=== PATIENT | male | born 1965 | race Caucasian/White ===

== ENCOUNTER → 2017-12-06 | Day surgery (SDC) | payer SELFPAY ==
[~2017-12-06] MED LIST: AMLODIPINE BESY10 MG PO; FENOFIBRATE145 MG PO; FENTANYL CITRATE/PF 100MCG/2 ML INJ ONE; FISH OIL 1,0001 EAC2 PO; FISH OIL 1,2001 EAC1; GLIPIZIDE ER5 MG PO; HYDROCHLOROTHIA25 MG PO; LISINOPRIL-HCT1 EACH; LISINOPRIL10 MG PO; METFORMIN HCL500 M2 PO; MIDAZOLAM HCL 2 MG/2 ML VIAL ONE; OMEPRAZOLE20 MG PEG; SIMVASTATIN40 MG PO; SYMBICORT 16010.2 GM INH
--- OUTSIDE RECORDS SUMMARY | 2017-12-06 10:23 | XMS REPORT ---
Author Organization Unknown Address [address] [place] [address] Phone [phone] Care Team [facility]iders [facility] Social Worker Name Role Phone Martin Blanco Unavailable Unavailable Allergies Code Code System Name Reaction Severity Status Onset NKDA Medications Name Status Start Date Stop Date amlodipine 10 mg tablet TAKE 1 TABLET BY MOUTH EVERY DAY Active Not available Augmentin 875 mg-125 mg tablet Take 1 tablet every 12 hours by oral route as directed for 10 days. Completed 11/21/2017 cyclobenzaprine 10 mg tablet Take 1 tablet twice a day by oral route as needed for 30 days. Active Not available fenofibrate 54 mg tablet Take 1 tablet every day by oral route as directed for 90 days. Active Not available Fish Oil BID Active Not available fluticasone 50 mcg/actuation nasal spray,suspension [place] 1 spray twice a day by intranasal route as directed for 14 days. Completed 11/21/2017 glipizide 5 mg tablet Take 1 tablet twice a day by oral route as directed for 90 days. Active Not available lisinopril 20 mg-hydrochlorothiazide 12.5 mg tablet TAKE 1 TABLET BY MOUTH EVERY DAY Active Not available metformin 500 mg tablet Take 2 tablets twice a day by oral route as directed. Active Not available simvastatin 40 mg tablet TAKE 1 TABLET BY MOUTH EVERY DAY Active Not available Symbicort 160 mcg-4.5 mcg/actuation HFA aerosol inhaler Inhale 1 puff twice a day by inhalation route as directed for 90 days. Active Not available tramadol 50 mg tablet Take 1 tablet 3 times a day by oral route as needed. Completed 11/18/2016 Ventolin HFA 90 mcg/actuation aerosol inhaler Inhale 2 puffs every 4 hours by inhalation route as needed for 30 days. Active Not available Problems Name Status Onset Date Source Type 2 Diabetes Mellitus Active 06/02/2016 Hyperlipidemia Active 06/02/2016 Hypertensive Disorder Active 06/02/2016 Chronic Obstructive Lung Disease Active 06/02/2016 Procedures Date Name Performed by 11/21/[address] [place] [address] (Work [address]) Notes: Patient indicated no previous surgeries on (11/21/2017) Lab Results Date Name Specimen Result Interpretation Description Value Range Status Address 09/14/2017 Lipid Panel, Serum Normal Cholesterol, Total 160 mg/dL <200 mg/dL Final [facility]: [address] Low HDL Cholesterol 29 mg/dL >40 mg/dL Final [facility]: [address] Normal Triglycerides 143 mg/dL <150 mg/dL Final [facility]: [address] High LDL-cholesterol 105 mg/dL (calc) Final [facility]: [address] High Chol/hdlc Ratio 5.5 (calc) <5.0 (calc) Final [facility]: [address] High Non HDL Cholesterol 131 mg/dL (calc) <130 mg/dL (calc) Final [facility]: [address] Pittman [address] 09/14/2017 CMP, Serum or Plasma High Glucose 138 mg/dL 65-99 mg/ dL Final [facility]: [address] Normal Urea Nitrogen (BUN) 19 mg/dL 7-25 mg/dL Final [facility]: [address] Normal Creatinine 1.31 mg/dL 0.70-1.33 mg/dL Final [facility]: [address] Normal eGFR Non-afr. Bahamian 63 mL/min/1.73m2 > or=60 mL/min/ 1.73m2 Final [facility]: [address] Normal eGFR 73 mL/min/1.73m2 > or=60 mL/min/ 1.73m2 Final [facility]: [address] BUN/creatinine Ratio not applicable (calc) 6-22 (calc) Final [facility]: [address] Normal Sodium 140 mmol/L 135-146 mmol/L Final [facility]: [address] Normal Potassium 4.8 mmol/L 3.5-5.3 mmol/L Final [facility]: [address] Normal Chloride 103 mmol/L 98-110 mmol/L Final [facility]: [address] Normal Carbon Dioxide 20 mmol/L 20-31 mmol/L Final [facility]: [address] Normal Calcium 9.4 mg/dL 8.6-10.3 mg/dL Final [facility]: [address] Normal Protein, Total 7.3 g/dL 6.1-8.1 g/dL Final [facility]: [address] Normal Albumin 4.4 g/dL 3.6-5.1 g/dL Final [facility]: [address] Normal Globulin 2.9 g/dL (calc) 1.9-3.7 g/dL (calc) Final [facility]: [address] Normal Albumin/globulin Ratio 1.5 (calc) 1.0-2.5 (calc) Final [facility]: [address] Normal Bilirubin, Total 0.3 mg/dL 0.2-1.2 mg/dL Final [facility]: [address] Normal Alkaline Phosphatase 47 U/L 40-115 U/L Final [facility]: [address] Normal Ast 28 U/L 10-35 U/L Final [facility]: [address] Normal Alt 28 U/L 9-46 U/L Final [facility]: [address] 09/14/2017 HbA1C (Hemoglobin a1C), Blood High Hemoglobin a1C 5.7 % of total HGB <5.7 % of total HGB Final [facility]: [address] EAG (mg/dL) 117 (calc) Final [facility]: [address] EAG (mmol/L) 6.5 (calc) Final [facility]: [address] [place] [address] 06/13/2017 CMP, Serum or Plasma High Glucose 189 mg/dL 65-99 mg/ dL Final [facility]: [address] Normal Urea Nitrogen (BUN) 19 mg/dL 7-25 mg/dL Final [facility]: [address] [place] High Creatinine 1.61 mg/dL 0.70-1.33 mg/dL Final [facility]: [facility] [facility] eGFR Non-afr. [place]ian 49 mL/min/1.73m2 > or=60 mL/min/ 1.73m2 Final [facility]: [address] Low eGFR 57 mL/min/1.73m2 > or=60 mL/min/ 1.73m2 Final [facility]: [address] [facility] Normal BUN/creatinine Ratio 12 (calc) 6-22 (calc) Final [facility]: [address] [facility] Normal Sodium 138 mmol/L 135-146 mmol/L Final [facility]: [address] Pearson [address] [place] [address] Normal Potassium 4.1 mmol/L 3.5-5.3 mmol/L Final [facility]: [address] [facility] Normal Chloride 99 mmol/L 98-110 mmol/L Final [facility]: [address] [facility] Normal Carbon Dioxide 23 mmol/L 20-31 mmol/L Final [facility]: [address] [facility] Normal Calcium 10.0 mg/dL 8.6-10.3 mg/dL Final [facility]: [address] [facility] Normal Protein, Total 7.0 g/dL 6.1-8.1 g/dL Final [facility]: [address] [facility] Normal Albumin 4.2 g/dL 3.6-5.1 g/dL Final [facility]: [address] [facility] Normal Globulin 2.8 g/dL (calc) 1.9-3.7 g/dL (calc) Final [facility]: [address] [facility] Normal Albumin/globulin Ratio 1.5 (calc) 1.0-2.5 (calc) Final [facility]: [address] Pearson [address] [place] [address] Normal Bilirubin, Total 0.5 mg/dL 0.2-1.2 mg/dL Final [facility]: [address] [place], [place] Normal Alkaline Phosphatase 40 U/L 40-115 U/L Final [facility]: [address] [facility] Normal Ast 28 U/L 10-35 U/L Final [facility]: [address] Pearson [address] [place] [address] Normal Alt 32 U/L 9-46 U/L Final [facility]: [address] [facility] 05/19/2017 CMP, Serum or Plasma Alt 28 U/L 0-55 U/L Final [facility]: [address] Ast 25 U/L 5-34 U/L Final [facility]: [address] Pearson [address] [place] [address] High Bun 28.3 mg/dL 8.4-25.7 mg/dL Final [facility]: [address] Alk Phos 80 unit/L 40-150 unit/L Final [facility]: [address] Pearson [address] [place] [address] CRITICAL HIGH Glucose 523 mg/dL 70-99 mg/dL Final [facility]: [address] Albumin 3.5 g/dL 3.5-5.0 g/dL Final [facility]: [address] Pearson [address] [place] [address] High Creatinine 2.13 mg/dL 0.72-1.25 mg/dL Final [facility]: [address] Low eGFR Non- 33 mL/min/1.73m2 >60 mL/min/ 1.73m2 Final [facility]: [address] Total Bilirubin 0.6 mg/dL 0.2-1.2 mg/dL Final [facility]: [address] Low eGFR - 40 mL/min/1.73m2 >60 mL/min/ 1.73m2 Final [facility]: [address] Low Sodium 134 mEq/L 136-145 mEq/L Final [facility]: [address] Potassium 3.6 mEq/L 3.5-5.1 mEq/L Final [facility]: [address] Low Chloride 95 mmol/L 98-107 mmol/L Final [facility]: [address] Total Protein 7.3 g/dL 6.4-8.3 g/dL Final [facility]: [address] Calcium 9.4 mg/dL 8.4-10.2 mg/dL Final [facility]: [address] Co2 23.1 mmol/L 22.0-29.0 mmol/L Final [facility]: [address] Anion Gap 16 calc Final [facility]: [address] 05/19/2017 Lipid Panel, Serum Low Hdl 27 mg/dL 40-60 mg/dL Final [facility]: [address] High Triglyceride 412 mg/dL 0-149 mg/dL Final [facility]: [address] VLDL Calc. 82 mg/dL Final [facility]: [address] cholesterol/HDL Ratio 5.8 mg/dL Final [facility]: [address] non-HDL Cholesterol Calc. 130 mg/dL 0-160 mg/dL Final [facility]: [address] Cholesterol 157 mg/dL 0-199 mg/dL Final [facility]: [address] Low LDL Calc. see comment mg/dL 0-130 mg/dL Final [facility]: [address] 05/19/2017 HbA1C (Hemoglobin a1C), Blood High A1C W/eag 14.3 % 1.0 -5.7 % Final [facility]: [address] Average Blood Glucose 364 mg/dL Final [facility]: [address] 11/18/2016 CMP, Serum or Plasma Alt 48 U/L 0-55 U/L Final [facility]: [address] High Ast 38 U/L 5-34 U/L Final [facility]: [address] [facility] Bun 12 mg/dL 8-26 mg/dL Final [facility]: [address] [place], [place] Alk Phos 77 unit/L 40-150 unit/L Final [facility]: [address] [place], [place] High Glucose 308 mg/dL 70-99 mg/dL Final [facility]: [address] [place], [place] Albumin 3.5 g/dL 3.5-5.0 g/dL Final [facility]: [address] [place] [address], [place] Creatinine 1.10 mg/dL 0.72-1.25 mg/dL Final [facility]: [address] Pearson [address] [place] [address] eGFR Non- >60 mL/min/1.73m2 >60 mL/min/ 1.73m2 Final [facility]: [address] Pearson [address] [place] [address] Total Bilirubin 0.5 mg/dL 0.2-1.2 mg/dL Final [facility]: [address] eGFR - >60 mL/min/1.73m2 >60 mL/min/1.73m2 Final [facility]: [address] [facility] Sodium 135 mEq/L 137-144 mEq/L Final [facility]: [address] Pearson [address] [place] [address] Potassium 4.1 mEq/L 3.5-5.0 mEq/L Final [facility]: [address] Low Chloride 99 mmol/L 101-110 mmol/L Final [facility]: [address] Total Protein 7.0 g/dL 6.4-8.3 g/dL Final [facility]: [address] Calcium 9.8 mg/dL 8.4-10.2 mg/dL Final [facility]: [address] Co2 24.1 mmol/L 21.0-29.0 mmol/L Final [facility]: [address] Anion Gap 12 calc Final [facility]: [address] [facility] 11/18/2016 Lipid Panel, Serum Low Hdl 35 mg/dL 40-60 mg/dL Final [facility]: [address] High Triglyceride 218 mg/dL 0-149 mg/dL Final [facility]: [address] VLDL Calc. 44 mg/dL Final [facility]: [address] cholesterol/HDL Ratio 5 mg/dL Final [facility]: [address] non-HDL Cholesterol Calc. 126 mg/dL 0-160 mg/dL Final [facility]: [address] Cholesterol 161 mg/dL 0-199 mg/dL Final [facility]: [address] LDL Calc. 82 mg/dL 0-130 mg/dL Final [facility]: [address] 11/18/2016 HbA1C (Hemoglobin a1C), Blood High A1C W/eag 10.2 % 1.0 -5.7 % Final [facility]: [address] Average Blood Glucose 246 mg/dL Final [facility]: [address] 06/02/2016 CMP, Serum or Plasma Alt 28.0 U/L 0.0-55.0 U/L Final [facility]: [address] Ast 21.0 U/L 5.0-34.0 U/L Final [facility]: [address] Bun 11.0 mg/dL 8.0-26.0 mg/dL Final [facility]: [address] Alk Phos 67.0 unit/L 40.0-150.0 unit/L Final [facility]: [address] High Glucose 158.0 mg/dL 70.0-99.0 mg/dL Final [facility]: [address] Albumin 3.5 g/dL 3.5-5.0 g/dL Final [facility]: [address] Creatinine 1.1 mg/dL 0.7-1.3 mg/dL Final [facility]: [address] eGFR Non- >60 mL/min/1.73m2 >60.0 mL/min/ 1.73m2 Final [facility]: [facility]055 [facility] Total Bilirubin 0.5 mg/dL 0.2-1.2 mg/dL Final [facility]: [address] eGFR - >60 mL/min/1.73m2 >60.0 mL/min/ 1.73m2 Final [facility]: [address], [place] Sodium 140.0 mEq/L 137.0-144.0 mEq/L Final [facility]: [address] [place] [address], [place] Potassium 4.3 mEq/L 3.5-5.0 mEq/L Final [facility]: [address] Chloride 103.0 mmol/L 101.0-110.0 mmol/L Final [facility]: [address] Total Protein 6.7 g/dL 6.4-8.3 g/dL Final [facility]: [address] Calcium 9.1 mg/dL 8.4-10.2 mg/dL Final [facility]: [address] Pearson [address] [place] [address] Co2 24 mmol/L 21-29 mmol/L Final [facility]: [address] Anion Gap 13.0 calc Final [facility]: [address] 06/02/2016 Lipid Panel, Serum Hdl 44.0 mg/dL 40.0-60.0 mg/dL Final [facility]: [address] High Triglyceride 173.0 mg/dL 0.0-149.0 mg/dL Final [facility]: [address] VLDL Calc. 34.6 mg/dL Final [facility]: [address] cholesterol/HDL Ratio 3.7 mg/dL Final [facility]: [address] non-HDL Cholesterol Calc. 120.0 mg/dL 0.0-160.0 mg/dL Final [facility]: [address] Cholesterol 164.0 mg/dL 0.0-199.0 mg/dL Final [facility]: [address] LDL Calc. 85.4 mg/dL 0.0-130.0 mg/dL Final [facility]: [address] [place] [address], [place] 06/02/2016 HbA1C (Hemoglobin a1C), Blood High A1C W/eag 6.5 % 1.0- 5.7 % Final [facility]: [address] [place] [address], [place] Average Blood Glucose 139.9 mg/dL Final [facility]: [address] [place] [address], [place] 11/07/2015 CMP, Serum or Plasma No observation recorded. [facility]: [address], [place] Glucose, Fingerstick, Blood Blood Glucose: mg/dl [address] [place], [place] [address]ore: [address] [facility] Past Encounters 11/21/2017 Hyperlipidemia; Type 2 Diabetes Mellitus; Benign Essential Hypertension; Chronic Obstructive Lung Disease; Pre-surgery Evaluation; Electrocardiogram Abnormal Be Zapata MD: [address] [place] [phone], Ph. 09/14/2017 Mixed Hyperlipidemia; Type II Diabetes Mellitus Uncontrolled; Low Back Pain; Benign Essential Hypertension; Chronic Obstructive Lung Disease; Upper Respiratory Infection Be Zapata MD: [address] [place] [phone], Ph. 06/13/2017 Type 2 Diabetes Mellitus; Serum Creatinine Raised Be Zapata MD: [address] [place] [phone], Ph. [phone] 05/26/2017 Type II Diabetes Mellitus Uncontrolled; Mixed Hyperlipidemia; Serum Creatinine Raised Be Zapata MD: [address] [place] [phone], Ph. 05/19/2017 Hyperlipidemia; Type II Diabetes Mellitus Uncontrolled; Benign Essential Hypertension; Low Back Pain; Chronic Obstructive Lung Disease; Pneumococcal Vaccination; Vaccination for Diphtheria, Pertussis, and Tetanus; Influenza Vaccination Be Zapata MD: [address] [place] [address], Ph. 11/18/2016 Benign Essential Hypertension; Type II Diabetes Mellitus Uncontrolled; Chronic Obstructive Lung Disease; Hyperlipidemia Be Zapata MD: [address] [place] [address], Ph. 06/02/2016 Type II Diabetes Mellitus Uncontrolled; Benign Essential Hypertension; Mixed Hyperlipidemia; Chronic Obstructive Lung Disease; Low Back Pain; Influenza Vaccination Be Zapata MD: [address] [place] [address], Ph. Social History Smoking Status Former Smoker Notes: quit in February 2016 Vaccine List Vaccine Type Influenza, injectable, MDCK, quadrivalent 05/19/20170.5 mL influenza, seasonal, injectable 06/02/20160.5 mL influenza, unspecified formulation 08/06/2015 Plan of Care Reminders Provider Appointments None recorded. Lab None recorded. Referral None recorded. Procedures None recorded. Surgeries None recorded. Imaging None recorded. Vitals 11/21/2017 01:45PM Work In Same Day Height Weight Blood Pressure 6 ft 4 in 140/70 mm[Hg] 09/14/2017 08:00AM Est Patient Height Weight Blood Pressure 6 ft 4 in 122/78 mm[Hg] 06/13/2017 09:00AM Est Patient Height Weight Blood Pressure 6 ft 4 in 108/70 mm[Hg] 05/26/2017 01:45PM Est Patient Height Weight Blood Pressure 6 ft 4 in 108/70 mm[Hg] 05/19/2017 08:15AM Est Patient Height Weight Blood Pressure 6 ft 4 in 112/70 mm[Hg] 11/18/2016 11:15AM Est Patient Height Weight BMI Blood Pressure 6 ft 4 in 424 lbs 51.6 kg/m2 (1) 160/88 mm[Hg] (2) 132/85 mm[Hg] 06/02/2016 09:15AM Est Patient Height Weight BMI Blood Pressure 6 ft 4 in 375 lbs 45.6 kg/m2 144/88 mm[Hg]
== END | disposition home or self-care (01) ==
LOC: OR 10:21
PROVIDERS: ATTEND Ophthalmology
DX: H25.12 Age-related nuclear cataract, left eye (principal); E11.9 Type 2 diabetes mellitus without complications; Z79.84 Long term (current) use of oral hypoglycemic drugs; I10 Essential (primary) hypertension; E78.5 Hyperlipidemia, unspecified; J44.9 Chronic obstructive pulmonary disease, unspecified; E66.01 Morbid (severe) obesity due to excess calories; K21.9 Gastro-esophageal reflux disease without esophagitis
CPT/HCPCS: 36415; 66984; 82948; J2250

== ENCOUNTER → 2017-12-20 | Day surgery (SDC) | payer SELFPAY ==
[~2017-12-20] MED LIST changes: +OR PHACO EYE KIT ONE; +PREOP PHACO EYE KIT ONE
== END | disposition home or self-care (01) ==
LOC: OR 11:59
PROVIDERS: ATTEND Ophthalmology
DX: H25.11 Age-related nuclear cataract, right eye (principal); E11.9 Type 2 diabetes mellitus without complications; I10 Essential (primary) hypertension; E78.5 Hyperlipidemia, unspecified; I44.0 Atrioventricular block, first degree; J44.9 Chronic obstructive pulmonary disease, unspecified; Z88.5 Allergy status to narcotic agent; Z79.84 Long term (current) use of oral hypoglycemic drugs
CPT/HCPCS: 36415; 66984; 82948; J2250

== ENCOUNTER 2020-03-12 11:52 | Emergency (ER) | payer SELFPAY ==
[~2020-03-12] VITALS: Ht 193 cm; Wt 181.4 kg
[~2020-03-12 11:52] MED LIST changes: -FENTANYL CITRATE/PF 100MCG/2 ML INJ ONE; -MIDAZOLAM HCL 2 MG/2 ML VIAL ONE; -OR PHACO EYE KIT ONE; -PREOP PHACO EYE KIT ONE
[2020-03-12] MEDS ORDERED: METHYLPREDNISOLONE SOD SUCC 125 MG/2ML VIAL IV STA (12:08)
[2020-03-12] MEDS ORDERED: FAMOTIDINE 20 MG/2 ML VIAL IV STA (12:08)
[2020-03-12] MEDS ORDERED: SODIUM CHLORIDE 0.9% 1000ML 1,000 ML IV STA (12:08)
[2020-03-12] MEDS ORDERED: DIPHENHYDRAMINE HCL INJ 50 MG/ML VIAL IV ONE (12:15)
[2020-03-12] MEDS ORDERED: DIPHENHYDRAMINE HCL INJ 50 MG/ML VIAL ONE (12:27)
[2020-03-12] MEDS ORDERED: FAMOTIDINE 20 MG/2 ML VIAL IV ONE (12:27)
--- OUTSIDE RECORDS SUMMARY | 2020-03-12 12:58 | XMS REPORT | Encounter Summary ---
Author Organization Unknown Address [address] [place] [address] Phone [phone] Care Team Providers Care Complaints Coordinator Name Role Phone Be Padilla MD 3 [phone] Artem Cunha MD 111 [phone] Reason for Visit Hyperlipidemia; Hypertensive disorder; L ow back pain; Chronic obstructive lung disease; Type 2 diabetes mellitus; Telemedicine Visit Instructions 1. Chronic obstructive lung disease Symbicort 160 mcg-4.5 mcg/actuation HF A aerosol inhaler Ventolin HFA 90 mcg/actuation aerosol inhaler 2. Low back pain cyclobenzaprine 10 mg tablet 3. Hypertensive disorder amlodipine 10 mg tablet lisinopril 20 mg-hydrochlorothiazide 1 2.5 mg tablet 4. Type 2 diabetes mellitus glipizide 5 mg tablet metformin 500 mg tablet HbA1c (hemoglobin A1c), blood CMP, serum or plasma lipid panel, serum 5. Hyperlipidemia high cholesterol: care instructions fenofibrate 54 mg tablet simvastatin 40 mg tablet Discussion Note await lab-prior > lipids/lft's/< kidney function Plan of Care Patient Instructions continue all meds />exercise Reminders Provider Appointments Return to Office on or around 08/22/2020 Dagoberto Morgan MD Lab HbA1C (Hemoglobin a1C), Blood 02/20/2020 [facility] Laboratory CMP, Serum or Plasma 02/20/2020 [facility] - Laboratory Lipid Panel, Serum 02/20/2020 [facility] Laboratory Referral None recorded. Procedures None recorded. Surgeries None recorded. Imaging None recorded. Medications Name Start Date amlodipine 10 mg tablet TAKE 1 TABLET BY MOUTH ONCE DAILY DIRECTED cyclobenzaprine 10 mg tablet Take 1 tablet twice a day by oral route as needed for 30 days. fenofibrate 54 mg tablet TAKE 1 TABLET BY MOUTH DAILY Fish Oil twice a day- OTC glipizide 5 mg tablet TAKE 1 TABLET BY MOUTH TWICE DAILY lisinopril 20 mg-hydrochlorothiazide 12. 5 mg tablet TAKE 1 TABLET BY MOUTH ONCE DAILY DIRECTED metformin 500 mg tablet TAKE 2 TABLETS BY MOUTH TWICE DAILY simvastatin 40 mg tablet TAKE 1 TABLET BY MOUTH ONCE DAILY DIRECTED Symbicort 160 mcg-4.5 mcg/actuation HFA aerosol inhaler Inhale 1 puff twice a day by inhalation route as directed for 90 days. Ventolin HFA 90 mcg/actuation aerosol in haler Inhale 2 puffs every 4 hours by inhalation route as needed. Medications Administered None recorded. Vitals Height 6 ft 4 in Results Lab Results None recorded. Allergies Code Code System Name Reaction Severity Status Onset NKDA Problems Name Status Onset Date Source Type 2 Diabetes Mellitus Active 06/02/2016 Hyperlipidemia Active 06/02/2016 Hypertensive Disorder Active 06/02/2016 Chronic Obstructive Lung Disease Active 06/02/2016 Low Back Pain Active 08/17/2019 Procedures None recorded. Vaccine List Vaccine Type Influenza, injectable, MDCK, quadrivalen t 05/19/20170.5 mL influenza, injectable, quadrivalent, pre servative free 08/17/20190.5 mL influenza, seasonal, injectable 06/02/20160.5 mL influenza, unspecified formulation 08/06/2015 pneumococcal polysaccharide PPV23 02/07/20190.5 mL Social History Tobacco Smoking Status Former Smoker Past Encounters 02/20/2020 Chronic Obstructive Lung Disease; Low Back Pain; Hypertensive Disorder; Type 2 Diabetes Mellitus; Hyperlipidemia Dagoberto Morgan MD: [id number] [facility], [address], [place] [address], Ph. History of Present Illness Note:I confirm that I received verbal consent from the patient for the virtual visit.
This telemedicine encounter was performed using live {{video and audio*|audio only because either patient did not have technology or unable to connect due to technical problems}}.
<strong>(for audio only)</strong> Total time spent with patient: {{ }} minutes.<div>f/u chronic conditions compliant with meds ,not exercise</div><div>normotensive with self monitoring,fbs 130's< /div> Review of Systems:ROS as noted in the HPI Review of Systems None recorded. Physical Exam Telemedicine/Virtual Visit Reported By: Patient"
--- OUTSIDE RECORDS SUMMARY | 2020-03-12 12:58 | XMS REPORT ---
Author Organization Unknown Address [address] [place] [address] Phone [phone] Care Team Providers Care Theater Projectionist Name Role Phone Be Blanco Unavailable Unavailable Allergies Code Code System Name Reaction Severity Status Onset NKDA Medications Name Status Start Date Stop Date amlodipine 10 mg tablet TAKE 1 TABLET BY MOUTH EVERY DAY Active Not av ailable Augmentin 875 mg-125 mg tablet Take 1 [...] Active Not available fluticasone 50 mcg/actuation nasal spray ,suspension Welch 1 spray twice a day by intranasal route as directed for 14 days. Completed 11/21/2017 glipizide 5 mg tablet Take 1 tablet twice a day by oral route as directed for 90 days. Active Not available lisinopril 20 mg-hydrochlorothiazide 12. 5 mg tablet TAKE 1 TABLET BY MOUTH EVERY DAY Active Not av ailable metformin 500 mg tablet Take 2 tablets twice a day by oral route as directed. Active Not available simvastatin 40 mg tablet TAKE 1 TABLET BY MOUTH EVERY DAY Active Not av ailable Symbicort 160 mcg-4.5 mcg/actuation HFA aerosol inhaler Inhale 1 puff twice a day by inhalation route as directed for 90 days. Active Not available tramadol 50 mg tablet Take 1 tablet 3 times a day by oral route as needed. Completed 11/18/2016 Ventolin HFA 90 mcg/actuation aerosol in haler Inhale 2 puffs every 4 hours by inhalation route as needed for 30 days. Active Not available Problems Name Status Onset Date Source Type 2 Diabetes Mellitus Active 06/02/2016 Hyperlipidemia Active 06/02/2016 Hypertensive Disorder Active 06/02/2016 Chronic Obstructive Lung Disease Active 06/02/2016 Procedures Date Name Performed by 11/21/2017 Electro[facility]ogram [facility] [address] [place] [address] (Work Place) Notes: Patient indicated no previous toni geries on (11/21/2017) Lab Results Date Name Specimen Result Interpretation Description Value Range Status Address 09/14/2017 Lipid Panel, Serum Normal Cholesterol, Tota l 160 mg/dL <200 mg/dL Final [facility]atory: [address] [place] [address], [place] Low HDL Cholesterol 29 mg/dL >40 mg/dL [facility] Laboratory: [address] Normal Triglycerides 143 mg/dL <150 mg/dL [facility] Laboratory: [address] [place] [address], [place] High LDL-cholesterol 105 mg/dL (calc) Final [facility] Laboratory: [address] High Chol/hdlc Ratio 5.5 (calc) <5.0 (katie c) Final [facility] Laboratory: [address] High Non HDL Cholesterol 131 mg/dL (calc) <130 mg/dL (calc) Final [facility] Laboratory: [address] [place] [address], [place] 09/14/2017 CMP, Serum or Plasma High Glucose 138 mg/dL 65-99 mg/dL Final [facility] Laboratory: [address] Normal Urea Nitrogen (BUN) 19 mg/dL 7-25 mg /dL Final [facility] Laboratory: [address] Normal Creatinine 1.31 mg/dL 0.70-1.33 mg/d L Final [facility] Laboratory: [address] Normal eGFR Non-afr. Colombian 63 mL/m in/1.73m2 > or = 60 mL/min/1.73m2 Final [facility] Lab[facility] ratory: [address] Normal eGFR 73 mL/mi n/1.73m2 > or = 60 mL/min/1.73m2 Final [facility] Laboratory: [address] BUN/creatinine Ratio not applicable (calc) 6-22 (calc) Final [facility] Laboratory: [address] Normal Sodium 140 mmol/L 135-146 mmol/L [facility] Laboratory: [address], [place] Normal Potassium 4.8 mmol/L 3.5-5.3 mmol/L Final [facility] Laboratory: [address], [place] Normal Chloride 103 mmol/L 98-110 mmol/L [facility]: [address] [facility] Normal Carbon Dioxide 20 mmol/L 20-31 mmol/ L [facility] Laboratory: [address] [facility] Normal Calcium 9.4 mg/dL 8.6-10.3 mg/dL [facility] Laboratory: [address] [place] Normal Protein, Total 7.3 g/dL 6.1-8.1 g/dL Final [facility] Laboratory: [address] [place] [address] Normal Albumin 4.4 g/dL 3.6-5.1 g/dL Final [facility] Laboratory[facility] [address] [facility] Normal Globulin 2.9 g/dL (calc) 1.9-3.7 g/d L (calc) Final [facility] Laboratory: [address] [place] [address] Normal Albumin/globulin Ratio 1.5 (calc) 1. 0-2.5 (calc) [facility] Laboratory[facility] [address] [facility] Normal Bilirubin, Total 0.3 mg/dL 0.2-1.2 m g/dL Final [facility] Laboratory: [address] [facility] Normal Alkaline Phosphatase 47 U/L 40-115 U /L [facility] Laboratory: [address] Normal Ast 28 U/L 10-35 U/L Final [facility] Laboratory: [address] [place] [address] Normal Alt 28 U/L 9-46 U/L Final [facility] Laboratory[facility] [address] [facility] 09/14/2017 HbA1C (Hemoglobin a1C), Blood High Hemoglobin a1C 5.7 % of total HGB <5.7 % of total HGB [facility] [address] [facility] EAG (mg/dL) 117 (calc) Final [facility] Laboratory: [address] EAG (mmol/L) 6.5 (calc) Final [facility] Laboratory[facility] [address] [facility] 06/13/2017 CMP, Serum or Plasma High Glucose 189 mg/dL 65-99 mg/dL Final [facility] Laboratory: [address] Normal Urea Nitrogen (BUN) 19 mg/dL 7-25 mg /dL Final [facility] Laboratory: [address] High Creatinine 1.61 mg/dL 0.70-1.33 mg/d L Final [facility] Laboratory: [address] Low eGFR Non-afr. Colombian 49 mL/m in/1.73m2 > or = 60 mL/min/1.73m2 Final [facility] Laboratory: [address] Low eGFR 57 mL/mi n/1.73m2 > or = 60 mL/min/1.73m2 [facility] Laboratory: [address] Normal BUN/creatinine Ratio 12 (calc) 6-22 (calc) [facility] Laboratory: [address] Normal Sodium 138 mmol/L 135-146 mmol/L [facility] Laboratory: [address] Normal Potassium 4.1 mmol/L 3.5-5.3 mmol/L [facility] Laboratory: [address] Normal Chloride 99 mmol/L 98-110 mmol/L [facility] Laboratory: [address] Normal Carbon Dioxide 23 mmol/L 20-31 mmol/ L [facility] Laboratory: [address] Normal Calcium 10.0 mg/dL 8.6-10.3 mg/dL [facility] Laboratory: [address] Normal Protein, Total 7.0 g/dL 6.1-8.1 g/dL [facility] Laboratory: [address] Normal Albumin 4.2 g/dL 3.6-5.1 g/dL Final [facility] Laboratory: [address] Normal Globulin 2.8 g/dL (calc) 1.9-3.7 g/d L (calc) Final [facility] Laboratory: [address] [place] Normal Albumin/globulin Ratio 1.5 (calc) 1. 0-2.5 (calc) Final [facility] Laboratory: [address] [place] Normal Bilirubin, Total 0.5 mg/dL 0.2-1.2 m g/dL Final [facility] Laboratory[facility] [address] [facility] Normal Alkaline Phosphatase 40 U/L 40-115 U /L Final [facility] Laboratory: [address] [facility] Normal Ast 28 U/L 10-35 U/L Final [facility] Laboratory: [address] Normal Alt 32 U/L 9-46 U/L Final [facility] Laboratory: [address] [place] 05/19/2017 CMP, Serum or Plasma Alt 28 U/L 0-55 U /L Final [facility] Laboratory: [address] Ast 25 U/L 5-34 U/L Final [facility] Laboratory: [address] [place] [address] High Bun 28.3 mg/dL 8.4-25.7 mg/dL Final [facility] Laboratory: [address] Alk Phos 80 unit/L 40-150 unit/L Fin al [facility] Laboratory: [address] [place] [address] CRITICAL HIGH Glucose 523 mg/dL 70-99 mg/dL Final [facility] Laboratory: [address] Albumin 3.5 g/dL 3.5-5.0 g/dL Final [facility] Laboratory: [address] [place] [address] High Creatinine 2.13 mg/dL 0.72-1.25 mg/d L Final [facility] Laboratory: [address] Low eGFR Non- 33 mL/min/1.73m2 >60 mL/min/1.73m2 Final [facility] Laboratory: [address] Total Bilirubin 0.6 mg/dL 0.2-1.2 mg /dL Final [facility] Laboratory: [address] Low eGFR - 40 mL/min/1. 73m2 >60 mL/min/1.73m2 Final [facility] Laboratory: [address] [place] [address], [place] Low Sodium 134 mEq/L 136-145 mEq/L Final [facility] Laboratory: [address] [place] [address], [place] Potassium 3.6 mEq/L 3.5-5.1 mEq/L [facility] Laboratory: [address] [place] [address], [place] Low Chloride 95 mmol/L 98-107 mmol/L [facility] Laboratory: [address] [place] [address], [place] Total Protein 7.3 g/dL 6.4-8.3 g/dL Final [facility] Laboratory: [address] [place] [address], [place] Calcium 9.4 mg/dL 8.4-10.2 mg/dL [facility] Laboratory: [address] [place] [address], [place] Co2 23.1 mmol/L 22.0-29.0 mmol/L [facility] Laboratory: [address] [place] [address], [place] Anion Gap 16 calc Final [facility] Laboratory: [address] 05/19/2017 Lipid Panel, Serum Low Hdl 27 mg/dL 40-60 mg/dL Final [facility] Laboratory: [address] High Triglyceride 412 mg/dL 0-149 mg/dL [facility] Laboratory: [address] [place] [address], [place] VLDL Calc. 82 mg/dL [facility] Laboratory: [address] cholesterol/HDL Ratio 5.8 mg/dL Final [facility] Laboratory: [address] non-HDL Cholesterol Calc. 130 mg/dL 0-160 mg/dL Final [facility] Laboratory: [address] [place] [address], [place] Cholesterol 157 mg/dL 0-199 mg/dL [facility] Laboratory: [address] Low LDL Calc. see comment mg/dL 0-130 mg /dL Final [facility] Laboratory: [address] [place] [address], [place] 05/19/2017 HbA1C (Hemoglobin a1C), Blood High A1C W/ eag 14.3 % 1.0-5.7 % Final [facility] Laboratory: [address] Average Blood Glucose 364 mg/dL Final [facility] Laboratory: [address] [place] 11/18/2016 CMP, Serum or Plasma Alt 48 U/L 0-55 U /L Final [facility] Laboratory: [address] [place] High Ast 38 U/L 5-34 U/L Final [facility] Laboratory: [address] [place] Bun 12 mg/dL 8-26 mg/dL Final [facility]: [address] [facility] Alk Phos 77 unit/L 40-150 unit/L [facility] Laboratory: [address] [place] High Glucose 308 mg/dL 70-99 mg/dL Final [facility] Laboratory: [address] [facility] [place] Albumin 3.5 g/dL 3.5-5.0 g/dL Final [facility] Laboratory: [address] [place] Creatinine 1.10 mg/dL 0.72-1.25 mg/d L Final [facility] Laboratory: [address] eGFR Non- >60 mL/min/1.73m2 >60 mL/min/1.73m2 Final [facility] Laboratory: [address] [place] [address] [place] Total Bilirubin 0.5 mg/dL 0.2-1.2 mg /dL Final [facility] Laboratory: [address] [facility] [place] eGFR - >60 mL/min/1 .73m2 >60 mL/min/1.73m2 Final [facility] Laboratory: [address] [place] Low Sodium 135 mEq/L 137-144 mEq/L Final [facility] Laboratory: [address] Potassium 4.1 mEq/L 3.5-5.0 mEq/L [facility] Laboratory: [address] [place] Low Chloride 99 mmol/L 101-110 mmol/L [facility] Laboratory: [address] [facility] Total Protein 7.0 g/dL 6.4-8.3 g/dL Final [facility] Laboratory: [address] [facility] Calcium 9.8 mg/dL 8.4-10.2 mg/dL [facility] Laboratory: [address] Co2 24.1 mmol/L 21.0-29.0 mmol/L [facility] Laboratory: [address] Anion Gap 12 calc Final [facility] Laboratory: [address] 11/18/2016 Lipid Panel, Serum Low Hdl 35 mg/dL 40-60 mg/dL Final [facility] Laboratory: [address] High Triglyceride 218 mg/dL 0-149 mg/dL F badgerl [facility] Laboratory: [address] VLDL Calc. 44 mg/dL Final [facility] Laboratory: [address] cholesterol/HDL Ratio 5 mg/dL Final [facility] Laboratory: [address] non-HDL Cholesterol Calc. 126 mg/dL 0-160 mg/dL Final [facility] Laboratory: [address] Cholesterol 161 mg/dL 0-199 mg/dL [facility] Laboratory: [address] LDL Calc. 82 mg/dL 0-130 mg/dL Final [facility] Laboratory: [address] 11/18/2016 HbA1C (Hemoglobin a1C), Blood High A1C W/ eag 10.2 % 1.0-5.7 % Final [facility] Laboratory: [address] Average Blood Glucose 246 mg/dL Final [facility] Laboratory: [address] [place] [address], [place] 06/02/2016 CMP, Serum or Plasma Alt 28.0 U/L 0.0- 55.0 U/L Final [facility] Laboratory: [address] Ast 21.0 U/L 5.0-34.0 U/L Final [facility] Laboratory: [address] Bun 11.0 mg/dL 8.0-26.0 mg/dL Final [facility] Laboratory: [address] Alk Phos 67.0 unit/L 40.0-150.0 unit /L Final [facility] Laboratory: [address] High Glucose 158.0 mg/dL 70.0-99.0 mg/dL Final [facility] Laboratory: [address], [place] Albumin 3.5 g/dL 3.5-5.0 g/dL Final [facility] Laboratory: [address], [place] Creatinine 1.1 mg/dL 0.7-1.3 mg/dL F inal [facility] Laboratory: [address], [place] eGFR Non- >60 mL/min/1.73m2 >60.0 mL/min/1.73m2 Final [facility] Laboratory: [address], [place] Total Bilirubin 0.5 mg/dL 0.2-1.2 mg /dL Final [facility] Laboratory: [address], [place] eGFR - >60 mL/min/1 .73m2 >60.0 mL/min/1.73m2 Final [facility] Laboratory: [address], [place] Sodium 140.0 mEq/L 137.0-144.0 mEq/L Final [facility] Laboratory: [address] [place] [address] Potassium 4.3 mEq/L 3.5-5.0 mEq/L Fi [facility] Laboratory: [address] [facility] Chloride 103.0 mmol/L 101.0-110.0 mm ol/L Final [facility] Laboratory: [address] [place] Total Protein 6.7 g/dL 6.4-8.3 g/dL Final [facility] Laboratory: [address], [place] Calcium 9.1 mg/dL 8.4-10.2 mg/dL Fin [facility] Laboratory: [address], [place] Co2 24 mmol/L 21-29 mmol/L [facility]: [address] [facility] Anion Gap 13.0 calc Final [facility] Laboratory: [address] [place] 06/02/2016 Lipid Panel, Serum Hdl 44.0 mg/dL 40.0 -60.0 mg/dL Final [facility] Laboratory: [address] [place] High Triglyceride 173.0 mg/dL 0.0-149.0 m g/dL Final [facility] Laboratory: [address] [place] [address], [place] VLDL Calc. 34.6 mg/dL Final [facility] Laboratory: [address] [place] [address], [place] cholesterol/HDL Ratio 3.7 mg/dL Final [facility] Laboratory: [address] [place] [address], [place] non-HDL Cholesterol Calc. 120.0 mg/d L 0.0-160.0 mg/dL Final [facility] Laboratory: [address] [place] [address], [place] Cholesterol 164.0 mg/dL 0.0-199.0 mg /dL Final [facility] Laboratory: [address] [place] [address], [place] LDL Calc. 85.4 mg/dL 0.0-130.0 mg/dL Final [facility] Laboratory: [address] [place] [address], [place] 06/02/2016 HbA1C (Hemoglobin a1C), Blood High A1C W/ eag 6.5 % 1.0-5.7 % Final [facility] Laboratory: [address] [place] [address], [place] Average Blood Glucose 139.9 mg/dL Final [facility] Laboratory: [address] [place] [address], [place] 11/07/2015 CMP, Serum or Plasma No observation recor ded. [facility]: [id number], [place] Glucose, Fingerstick, Blood Blood Glucose: m g/dl 152 [facility] [address] [place] [address] Past Encounters 11/21/2017 Hyperlipidemia; Type 2 Diabetes Mellitus; Benign Essential Hypertension; Chronic Obstructive Lung Disease; Pre-surgery Evaluation; Electrocardiogram Abnormal Be Zapata MD: [address] [place] [phone], Ph. 09/14/2017 Mixed Hyperlipidemia; Type II Diabetes Mellitus Uncontrolled; Low Back Pain; Benign Essential Hypertension; Chronic Obstructive Lung Disease; Upper Respiratory Infection Be Zapata MD: [address] [place] [phone], Ph. 06/13/2017 Type 2 Diabetes Mellitus; Serum Creatinine Raised Be Zapata MD: [address] [place] [phone], Ph. 05/26/2017 Type II Diabetes Mellitus Uncontrolled; Mixed Hyperlipidemia; Serum Creatinine Raised Be Zapata MD: [address] [place] [phone], Ph. 05/19/2017 Hyperlipidemia; Type II Diabetes Mellitus Uncontrolled; Benign Essential Hypertension; Low Back Pain; Chronic Obstructive Lung Disease; Pneumococcal Vaccination; Vaccination for Diphtheria, Pertussis, and Tetanus; Influenza Vaccination Be Zapata MD: [address] [place] [phone], Ph. 11/18/2016 Benign Essential Hypertension; Type II Diabetes Mellitus Uncontrolled; Chronic Obstructive Lung Disease; Hyperlipidemia Be Zapata MD: [address] [place] [phone], Ph. 06/02/2016 Type II Diabetes Mellitus Uncontrolled; Benign Essential Hypertension; Mixed Hyperlipidemia; Chronic Obstructive Lung Disease; Low Back Pain; Influenza Vaccination Be Zapata MD: [address] [place] [phone], Ph. Social History Smoking Status Former Smoker Notes: quit in February 2016 Vaccine List Vaccine Type Influenza, injectable, MDCK, quadrivalen t 05/19/20170.5 mL influenza, seasonal, injectable 06/02/20160.5 mL [...] in 424 lbs 51.6 kg/m2 (1) 160/88 mm[H g] (2) 132/85 mm[Hg] 06/02/2016 09:15AM Est Patient Height Weight BMI Blood Pressure 6 ft 4 in 375 lbs 45.6 kg/m2 144/88 mm[Hg]
--- OUTSIDE RECORDS SUMMARY | 2020-03-12 12:58 | XMS REPORT | Encounter Summary ---
Author Organization Unknown Address [address] [place] [address] Phone [phone] Care Team Providers Care Lease Operator Name Role Phone Be Padilla MD 3 [phone] Artem Cunha MD 111 [phone] Reason for Visit lab only visit Instructions 1. Type 2 diabetes mellitus Discussion Note: None recorded. Patient educational handouts: No information available. Plan of Care Reminders Provider Appointments Return to Office on or around 08/22/2020 Dagoberto Moragn MD Lab None recorded. Referral None recorded. Procedures [...] needed. Medications Administered None recorded. Vitals Height Weight BMI 6 ft 4 in 379 lbs 46.1 kg/m2 Results Lab Results None recorded. Allergies Code [...] Tobacco Smoking Status Former Smoker Past Encounters 03/06/2020 Type 2 Diabetes Mellitus Dagoberto Morgan MD: [id number], [facility] [address], [place] [address], Ph. 02/20/2020 Chronic Obstructive Lung Disease; Low Back Pain; Hypertensive Disorder; Type 2 Diabetes Mellitus; Hyperlipidemia Dagoberto Morgan MD: [id number], [address], [place] [address], Ph. History of Present Illness None recorded. Review of Systems None recorded. Physical Exam None recorded.
--- OUTSIDE RECORDS SUMMARY | 2020-03-12 12:58 | XMS REPORT | Encounter Summary ---
Author Organization Unknown Address [address] [place] [address] Phone [phone] Care Team Providers Care Resident Engineer Name Role Phone Be Padilla MD 3 [phone] Artem Cunha MD 111 [phone] Reason for Visit Hyperlipidemia; Hypertensive disorder; T ype 2 diabetes mellitus Instructions 1. Type 2 diabetes mellitus glipizide 5 mg tablet metformin 500 mg tablet HbA1c (hemoglobin A1c), blood 2. Hyperlipidemia high cholesterol: care instructions fenofibrate 54 mg tablet simvastatin 40 mg tablet lipid panel, serum 3. Hypertensive disorder amlodipine 10 mg tablet lisinopril 20 mg-hydrochlorothiazide 1 2.5 mg tablet CMP, serum or plasma CBC w/ auto diff 4. Body mass index 40+ - severely obese body mass index: care instructions learning about healthy weight 5. Morbid obesity starting a weight loss plan: care inst ructions start aerobic exercise body mass index: care instructions dash diet: care instructions 6. Low back pain cyclobenzaprine 10 mg tablet 7. Screening for malignant neoplasm of c olon fecal occult blood, stool 8. Immunization Pneumovax 23 25 mcg/0.5 mL injection s yringe 9. Screening for malignant neoplasm of p rostate PSA, serum or plasma Discussion Note: None recorded. Plan of Care Reminders Provider Appointments Return to Office on or around 08/12/2019 Be Zapata MD Lab Fecal Occult Blood, Stool 02/07/2019 [facility] CMP, Serum or Plasma 02/07/2019 [place] [facility] CBC W/ Auto Diff 02/07/2019 [facility] Lipid Panel, Serum 02/07/2019 [facility] HbA1C (Hemoglobin a1C), Blood 02/07/2019 [facility] PSA, Serum or Plasma 02/07/2019 [place] [facility] Referral None recorded. Procedures None recorded. Surgeries None recorded. Imaging None recorded. Medications Name Start Date amlodipine 10 mg tablet TAKE 1 TABLET BY MOUTH ONCE DAILY DIRECTED cyclobenzaprine 10 mg tablet Take 1 tablet twice a day by oral route as needed for 30 days. fenofibrate 54 mg tablet TAKE 1 TABLET BY MOUTH DAILY Fish Oil BID - OTC glipizide 5 mg tablet TAKE 1 [...] inhalation route as needed for 30 days. Medications Administered None recorded. Vitals Height Weight BMI Blood Pressure 6 ft 4 in 387.6 lbs 47.2 kg/m2 132/80 mm[Hg] Lab Results None recorded. Allergies Code Code System Name Reaction Severity Status Onset NKDA Problems Name Status Onset Date Source Type 2 Diabetes Mellitus Active 06/02/2016 Hyperlipidemia Active 06/02/2016 Hypertensive Disorder Active 06/02/2016 Chronic Obstructive Lung Disease Active 06/02/2016 Procedures None recorded. Vaccine List Vaccine Type Influenza, injectable, MDCK, quadrivalen t 05/19/20170.5 mL influenza, seasonal, injectable 06/02/20160.5 mL influenza, unspecified formulation 08/06/2015 pneumococcal polysaccharide PPV23 02/07/20190.5 mL Social History Smoking Status Former Smoker Past Encounters 02/07/2019 Type 2 Diabetes Mellitus; Hyperlipidemia; Hypertensive Disorder; Body Mass Index 40+ - Severely Obese; Morbid Obesity; Low Back Pain; Screening for Malignant Neoplasm of Colon; Immunization; Screening for Malignant Neoplasm of Prostate Be Zapata MD: [id number] [place] [address], Ph. History of Present Illness Note:F/u on chronic conditions. Needs refills. Compliant with meds. Non compliant with diet or exercise. Glucose readings at home 120s-130s. BPs at home 120s/80s. No side effects with meds. No new concerns. Review of Systems Comprehensive General Adult ROS Reported By: Patient Constitutional: Constitutional: no fever Eyes: Eyes: no vision change Cardiovascular: Cardiovascular: no chest donavon n, no palpitations, no lightheadedness Respiratory: Respiratory: no cough, no wh eezing, no shortness of breath Gastrointestinal: Gastrointestinal: no abdomin al pain, no nausea, no vomiting, no constipation, no diarrhea Musculoskeletal: Musculoskeletal: no muscle a ches, no swelling in the extremities Neurologic: Neurologic: no loss of consc iousness, no headaches Psychiatric: Psych: no depression, no alc ohol abuse, no anxiety, no suicidal thoughts Endocrine: Endocrine: no fatigue Physical Exam General Adult Exam (male) Reported By: Patient Constitutional: General Appearance: healthy- appearing, morbidly obese. Level of Distress: NAD. Ambulation: ambulating normally Psychiatric: Insight: good judgement. Men steve Status: active and alert, normal mood, normal affect. Orientation: to time, to place, to person. Memory: recent memory normal, remote memory normal Head: Head: normocephalic, atrauma tic Eyes: Lids and Conjunctivae: non-i njected, no discharge. EOM: EOMI ENMT: Ears: TMs clear. Nose: no si nus tenderness. Lips, Teeth, and Gums: no mouth or lip ulcers. Oropharynx: moist mucous membranes Neck: Neck: supple, trachea midlin e. Thyroid: no enlargement, non-tender Lungs: Auscultation: breath sounds normal Cardiovascular: Heart Auscultation: RRR, nor mal S1, normal S2, no murmurs. Neck vessels: no carotid bruits. Pulses including femoral / pedal: normal throughout Abdomen: Inspection and Palpation: so ft, non-distended, no tenderness, no guarding Musculoskeletal:: Motor Strength and Tone: nor mal, normal tone. Joints, Bones, and Muscles: normal movement of all extremities, no tenderness. Extremities: no edema Neurologic: Gait and Station: normal gai t. Cranial Nerves: grossly intact. Coordination and Cerebellum: no tremor Skin: Inspection and palpation: no rash, no lesions Back: Thoracolumbar Appearance: ; non tender with palpation
--- OUTSIDE RECORDS SUMMARY | 2020-03-12 12:58 | XMS REPORT | Continuity of Care Document ---
Author Author [facility] t Organization [facility] Address [address] [place] [address] Phone Unavailable Care Team Providers Care Child Care Lead Teacher Name Role Phone Unavailable Unavailable Problems Condition Name Condition Details Condition Category Status Onset Date Resolution Date Last Treatment Date Treating Clinician Comments Source Low back pain Low Back Pain Problem Active 2019-08-17 00:00:00 [facility] Type 2 diabetes mellitus Type 2 Diabetes Mellitus Problem Acti ve 2016-06-02 00:00:00 [facility] Hyperlipidemia Hyperlipidemia Problem Active 2016-06-02 00:00:00 [facility] Hypertensive disorder Hypertensive Disorder Problem Active 201 01-15-26 00:00:00 [facility] Lucas akins Chronic obstructive lung disease Chronic Obstructive Lung Diseas e Problem Active 2016-06-02 00:00:00 [facility] Allergies, Adverse Reactions, Alerts This patient has no known allergies or adverse reactions. Social History Smoking Status Start Date Stop Date Source Former Smoker Moshe akins Medications Ordered Medication Name Filled Medication Name Start Date Stop Da te Current Medication? Ordering Clinician Indication Dosage Frequency Signature (SIG) Comments Components Source amlodipine 10 mg tablet TAKE 1 TABLET BY MOUTH ONCE DA NAEL DIRECTED amlodipine 10 mg tablet TAKE 1 TABLET BY MOUTH ONCE DAILY DIRECTED No amlodipine 10 mg tablet TAKE 1 TABLET BY MOUTH ONCE DAILY DIRECTED [facility] cyclobenzaprine 10 mg tablet Take 1 tabl et twice a day by oral route as needed for 30 days. cyclobenzaprine 10 mg tablet Take 1 tabl et twice a day by oral route as needed for 30 days. No 1 BID cyclobenzaprine 10 mg tablet Take 1 tablet twice a day by oral route as needed for 30 days. [facility] fenofibrate 54 mg tablet TAKE 1 TABLET BY MOUTH DAILY fenofibrate 54 mg tablet TAKE 1 TABLET BY MOUTH DAILY No fenofibrate 54 mg tablet TAKE 1 TABLET BY MOUTH DAILY [facility] Fish Oil twice a day- OTC Fish Oil twice a day- OTC No Fish Oil twice a day- OTC [facility] mg tablet TAKE 1 TABLET BY MOUTH TWICE ENRRIQUE LY glipizide 5 mg tablet TAKE 1 TABLET BY MOUTH TWICE DAILY No glipizide 5 mg tablet TAKE 1 TABLET BY MOUTH TWICE DAILY [facility] lisinopril 20 mg-hydrochlorothiazide 12. 5 mg tablet TAKE 1 TABLET BY MOUTH ONCE DAILY DIRECTED lisinopril 20 mg-hydrochlorothiazide 12. 5 mg tablet TAKE 1 TABLET BY MOUTH ONCE DAILY DIRECTED No lisinopril 20 mg- hydrochlorothiazide 12.5 mg tablet TAKE 1 TABLET BY MOUTH ONCE DAILY DIRECTED [facility] metformin 500 mg tablet TAKE 2 TABLETS BY MOUTH TWICE DAILY metformin 500 mg tablet TAKE 2 TABLETS BY MOUTH TWICE DAILY No metformin 500 mg tablet TAKE 2 TABLETS BY MOUTH TWICE DAILY [facility] simvastatin 40 mg tablet TAKE 1 TABLET BY MOUTH ONCE D AILY DIRECTED simvastatin 40 mg tablet TAKE 1 TABLET BY MOUTH ONCE DAILY DIRECTED No simvastatin 40 mg tablet TAKE 1 TABLET BY MOUTH ONCE DAILY DIRECTED [facility] Symbicort 160 mcg-4.5 mcg/actuation HFA aerosol inhaler Inhale 1 puff twice a day by inhalation route as directed for 90 days. Symbicort 160 mcg-4.5 mcg/actuation HFA aerosol inhaler Inhale 1 puff twice a day by inhalation route as directed for 90 days. No 1puff(s) BID Symbicort 160 mcg-4.5 mcg/actuation HFA aerosol inhaler Inhale 1 puff twice a day by inhalation route as directed for 90 days. [facility] Ventolin HFA 90 mcg/actuation aerosol in haler Inhale 2 puffs every 4 hours by inhalation route as needed. Ventolin HFA 90 mcg/actuation aerosol in haler Inhale 2 puffs every 4 hours by inhalation route as needed. No 2puff(s) Q4H Ventolin HFA 90 mcg/actuation aerosol inhaler Inhale 2 puffs every 4 hours by inhalation route as needed. [facility] Practice Immunizations Ordered Immunization Name Filled Immunization Name Date Status Comments Source influenza, injectable, quadrivalent, preservative free influenza, injectable, quadrivalent, preservative free 2019-08-17 15:37:[address] [facility] pneumococcal polysaccharide PPV23 pneumococcal polysaccharid e PPV23 2019-02-07 11:05:00 [facility]pleted [facility] Influenza, injectable, MDCK, quadrivalent Influenza, i njectable, MDCK, quadrivalent 2017-05-19 09:23:12 Completed [facility] influenza, seasonal, injectable influenza, seasonal, injecta ble 2016-06-02 17:00:00 Completed [facility] ice influenza, unspecified formulation influenza, unspecified fo rmulation 2015-08-06 00:00:[address] [facility] ice Vital Signs Vital Name Observation Time Observation Value Comments Source Height 2020-03-06 00:00:00 76 [in_i] [facility] BMI (Body Mass Index) 2020-03-06 00:00:00 46.1 kg/m2 [facility] Body Weight 2020-03-06 00:00:00 379 [lb_av] [facility] Height 2020-02-20 00:00:00 76 [in_i] [facility] BP Diastolic 2019-08-17 00:00:00 84 mm[Hg] [facility] Height 2019-08-17 00:00:00 76 [in_i] [facility] BMI (Body Mass Index) 2019-08-17 00:00:00 46.1 kg/m2 [facility] BP Systolic 2019-08-17 00:00:00 150 mm[Hg] [facility] Body Weight 2019-08-17 00:00:00 379 [lb_av] [facility] BP Diastolic 2019-02-07 00:00:00 80 mm[Hg] [facility] Height 2019-02-07 00:00:00 76 [in_i] [facility] BMI (Body Mass Index) 2019-02-07 00:00:00 47.2 kg/m2 [facility] BP Systolic 2019-02-07 00:00:00 132 mm[Hg] [facility] Body Weight 2019-02-07 00:00:00 387.6 [lb_av] [facility] BP Diastolic 2017-11-21 00:00:00 70 mm[Hg] [facility] Height 2017-11-21 00:00:00 76 [in_i] [facility] BP Systolic 2017-11-21 00:00:00 140 mm[Hg] [facility] BP Diastolic 2017-09-14 00:00:00 78 mm[Hg] [facility] Height 2017-09-14 00:00:00 76 [in_i] [facility] BP Systolic 2017-09-14 00:00:00 122 mm[Hg] [facility] BP Diastolic 2017-06-13 00:00:00 70 mm[Hg] [facility] Height 2017-06-13 00:00:00 76 [in_i] [facility] BP Systolic 2017-06-13 00:00:00 108 mm[Hg] [facility] BP Diastolic 2017-05-26 00:00:00 70 mm[Hg] [facility] Height 2017-05-26 00:00:00 76 [in_i] [facility] BP Systolic 2017-05-26 00:00:00 108 mm[Hg] [facility] BP Diastolic 2017-05-19 00:00:00 70 mm[Hg] [facility] Height 2017-05-19 00:00:00 76 [in_i] [facility] BP Systolic 2017-05-19 00:00:00 112 mm[Hg] [facility] BP Diastolic 2016-11-18 00:00:00 88 mm[Hg] [facility] Height 2016-11-18 00:00:00 76 [in_i] [facility] BMI (Body Mass Index) 2016-11-18 00:00:00 51.6 kg/m2 [facility] BP Systolic 2016-11-18 00:00:00 160 mm[Hg] [facility] Body Weight 2016-11-18 00:00:00 424 [lb_av] [facility] BP Diastolic 2016-06-02 00:00:00 88 mm[Hg] [facility] Height 2016-06-02 00:00:00 76 [in_i] [facility] BMI (Body Mass Index) 2016-06-02 00:00:00 45.6 kg/m2 [facility] BP Systolic 2016-06-02 00:00:00 144 mm[Hg] [facility] Body Weight 2016-06-02 00:00:00 375 [lb_av] [facility] Procedures Procedure Date / Time Performed Performing Clinician Sourc e electrocardiogram 2017-11-21 00:00:00 [facility] Carmen cantu [facility] Plan of Care Planned Activity Planned Date Details Comments Source Future Appointment 2020-08-22 00:00:00 Dagoberto Morgan, [address]; [address], [place] [address] [facility] Prac rafael Encounters Start Date/Time End Date/Time Encounter Type Admission Type [facility] Care Department Encounter ID Source 2020-03-06 00:00:00 2020-03-06 00:00:00 Dagoberto Morgan MD: [address], [address], [place] [address], Ph. [facility] (WAG) [id number] [facility] 2020-02-20 00:00:00 2020-02-20 00:00:00 Dagoberto Morgan MD: [address], [address], [place] [address], Ph. [facility] (WAG) [id number] [facility] 2019-08-17 00:00:00 2019-08-17 00:00:00 Dagoberto Morgan MD: [address] [place] [address], Ph. [facility] [id number] [facility] 2019-02-07 00:00:00 2019-02-07 00:00:00 Be garduno MD: [place] [address], Ph. [facility] [id number] [facility] 2017-11-21 00:00:00 2017-11-21 00:00:00 Be garduno MD: [address] [place] [address], Ph. [facility] [id number] [facility] 2017-09-14 00:00:00 2017-09-14 00:00:00 Be garduno MD: [place] [address], Ph. [facility] [id number] [facility] 2017-06-13 00:00:00 2017-06-13 00:00:00 Be garduno MD: [address] [place] [address], Ph. [facility] [id number] [facility] 2017-05-26 00:00:00 2017-05-26 00:00:00 Be garduno MD: [address] [place] [address], Ph. [facility] [id number] [facility] 2017-05-19 00:00:00 2017-05-19 00:00:00 Be garduno MD: [address] [place] [address], Ph. [facility] [id number] [facility] 2016-11-18 00:00:00 2016-11-18 00:00:00 Be garduno MD: [address] [place] [address], Ph. [facility] [id number] [facility] 2016-06-02 00:00:00 2016-06-02 00:00:00 Be garduno MD: [address] [place] [address], Ph. [facility] [id number] [facility] Results Test Description Test Time Test Comments Results Result Comments Source Lipid 1996 panel - Serum or Plasma 2017-09-15 11:29:00 Test Item cholesterol, total (test code = cholesterol, total) 160 mg/dL <2 00 HDL cholesterol (test code = HDL cholesterol) 29 mg/dL >40 L triglycerides (test code = triglycerides) 143 mg/dL <150 LDL-cholesterol (test code = LDL-cholesterol) 105 mg/dL (calc) H chol/HDLC ratio (test code = chol/HDLC ratio) 5.5 (calc) <5.0 H non HDL cholesterol (test code = non HDL cholesterol) 131 mg/dL (ca lc) <130 H [facility] - Serum or Plasma 2017-09-15 11:29:00* Test Item Value Reference Range Interpretation Comments glucose (test code = glucose) 138 mg/dL 65-99 H urea nitrogen (BUN) (test code = urea nitrogen (BUN)) 19 mg/dL 7-25 creatinine (test code = creatinine) 1.31 mg/dL 0.70-1.33 eGFR non-afr. costa rican (test code = eGFR non-afr. costa rican) 63 mL/min/1.73m2 > or = 60 eGFR (test code = eGFR ) 73 mL/min/1.73m2 > or = 60 BUN/creatinine ratio (test code = BUN/creatinine ratio) not applica ble 6-22 sodium (test code = sodium) 140 mmol/L 135-146 potassium (test code = potassium) 4.8 mmol/L 3.5-5.3 chloride (test code = chloride) 103 mmol/L 98-110 carbon dioxide (test code = carbon dioxide) 20 mmol/L 20-31 calcium (test code = calcium) 9.4 mg/dL 8.6-10.3 protein, total (test code = protein, total) 7.3 g/dL 6.1-8.1 albumin (test code = albumin) 4.4 g/dL 3.6-5.1 globulin (test code = globulin) 2.9 g/dL (calc) 1.9-3.7 albumin/globulin ratio (test code = albumin/globulin ratio) 1.5 (calc) 1.0-2.5 bilirubin, total (test code = bilirubin, total) 0.3 mg/dL 0.2-1. 2 alkaline phosphatase (test code = alkaline phosphatase) 47 U/L 40-115 AST (test code = AST) 28 U/L 10-35 ALT (test code = ALT) 28 U/L 9-46 [facility]Hemoglobin.total in [id number] 06:15:00* Test Item Value Reference Range Interpretation Comments hemoglobin A1C (test code = hemoglobin A1C) 5.7 % of total HGB <5.7 H EAG (mg/dL) (test code = EAG (mg/dL)) 117 (calc) EAG (mmol/L) (test code = EAG (mmol/L)) 6.5 (calc) [facility] metabolic 1999 panel - Serum or Plasma 2017-06-13 23:39:00* Test Item Value Reference Range Interpretation Comments glucose (test code = glucose) 189 mg/dL 65-99 H urea nitrogen (BUN) (test code = urea nitrogen (BUN)) 19 mg/dL 7-25 creatinine (test code = creatinine) 1.61 mg/dL 0.70-1.33 H eGFR non-afr. costa rican (test code = eGFR non-afr. costa rican) 49 mL/min/1.73m2 > or = 60 L eGFR (test code = eGFR ) 57 mL/min/1.73m2 > or = 60 L BUN/creatinine ratio (test code = BUN/creatinine ratio) 12 (calc) 6-22 sodium (test code = sodium) 138 mmol/L 135-146 potassium (test code = potassium) 4.1 mmol/L 3.5-5.3 chloride (test code = chloride) 99 mmol/L 98-110 carbon dioxide (test code = carbon dioxide) 23 mmol/L 20-31 calcium (test code = calcium) 10.0 mg/dL 8.6-10.3 protein, total (test code = protein, total) 7.0 g/dL 6.1-8.1 albumin (test code = albumin) 4.2 g/dL 3.6-5.1 globulin (test code = globulin) 2.8 g/dL (calc) 1.9-3.7 albumin/globulin ratio (test code = albumin/globulin ratio) 1.5 (calc) 1.0-2.5 bilirubin, total (test code = bilirubin, total) 0.5 mg/dL 0.2-1. 2 alkaline phosphatase (test code = alkaline phosphatase) 40 U/L 40-115 AST (test code = AST) 28 U/L 10-35 ALT (test code = ALT) 32 U/L 9-46 [facility] metabolic 1999 panel - Serum or Plasma 2017-05-20 12:10:00* Test Item Value Reference Range Interpretation Comments ALT (test code = ALT) 28 U/L 0-55 AST (test code = AST) 25 U/L 5-34 BUN (test code = BUN) 28.3 mg/dL 8.4-25.7 H alk phos (test code = alk phos) 80 unit/L 40-150 glucose (test code = glucose) 523 mg/dL 70-99 H albumin (test code = albumin) 3.5 g/dL 3.5-5.0 creatinine (test code = creatinine) 2.13 mg/dL 0.72-1.25 H eGFR non- (test code = eGFR non-rober n costa rican) 33 mL/min/1.73m2 >60 L total bilirubin (test code = total bilirubin) 0.6 mg/dL 0.2-1.2 eGFR - (test code = eGFR - ) 40 mL/min/1.73m2 >60 L sodium (test code = sodium) 134 mEq/L 136-145 L potassium (test code = potassium) 3.6 mEq/L 3.5-5.1 chloride (test code = chloride) 95 mmol/L 98-107 L total protein (test code = total protein) 7.3 g/dL 6.4-8.3 calcium (test code = calcium) 9.4 mg/dL 8.4-10.2 CO2 (test code = CO2) 23.1 mmol/L 22.0-29.0 anion gap (test code = anion gap) 16 calc [facility] - Serum or [id number] 11:15:00* Test Item Value Reference Range Interpretation Comments HDL (test code = HDL) 27 mg/dL 40-60 L triglyceride (test code = triglyceride) 412 mg/dL 0-149 H VLDL calc. (test code = VLDL calc.) 82 mg/dL cholesterol/HDL ratio (test code = cholesterol/HDL ratio) 5.8 mg/dL non-HDL cholesterol calc. (test code = non-HDL cholesterol c alc.) 130 mg/dL 0-160 cholesterol (test code = cholesterol) 157 mg/dL 0-199 LDL calc. (test code = LDL calc.) see comment 0-130 L [facility]Hemoglobin.total in [id number] 17:58:00* Test Item Value Reference Range Interpretation Comments A1C w/EAG (test code = A1C w/EAG) 14.3 % 1.0-5.7 H average blood glucose (test code = average blood glucose) 364 mg/dL [facility] 1999 panel - Serum or Plasma 2016-11-19 16:56:00* Test Item Value Reference Range Interpretation Comments ALT (test code = ALT) 48 U/L 0-55 AST (test code = AST) 38 U/L 5-34 H BUN (test code = BUN) 12 mg/dL 8-26 alk phos (test code = alk phos) 77 unit/L 40-150 glucose (test code = glucose) 308 mg/dL 70-99 H albumin (test code = albumin) 3.5 g/dL 3.5-5.0 creatinine (test code = creatinine) 1.10 mg/dL 0.72-1.25 eGFR non- (test code = eGFR non-) > 60 >60 total bilirubin (test code = total bilirubin) 0.5 mg/dL 0.2-1.2 eGFR - (test code = eGFR - ) >60 >60 sodium (test code = sodium) 135 mEq/L 137-144 L potassium (test code = potassium) 4.1 mEq/L 3.5-5.0 chloride (test code = chloride) 99 mmol/L 101-110 L total protein (test code = total protein) 7.0 g/dL 6.4-8.3 calcium (test code = calcium) 9.8 mg/dL 8.4-10.2 CO2 (test code = CO2) 24.1 mmol/L 21.0-29.0 anion gap (test code = anion gap) 12 calc [facility] - Serum or [id number] 16:56:00* Test Item Value Reference Range Interpretation Comments HDL (test code = HDL) 35 mg/dL 40-60 L triglyceride (test code = triglyceride) 218 mg/dL 0-149 H VLDL calc. (test code = VLDL calc.) 44 mg/dL cholesterol/HDL ratio (test code = cholesterol/HDL ratio) 5 mg/dL non-HDL cholesterol calc. (test code = non-HDL cholesterol c alc.) 126 mg/dL 0-160 cholesterol (test code = cholesterol) 161 mg/dL 0-199 LDL calc. (test code = LDL calc.) 82 mg/dL 0-130 [facility]Hemoglobin.total in [id number] 12:20:00* Test Item Value Reference Range Interpretation Comments A1C w/EAG (test code = A1C w/EAG) 10.2 % 1.0-5.7 H average blood glucose (test code = average blood glucose) 246 mg/dL [facility]Hemoglobin.total in [id number] 10:19:00* Test Item Value Reference Range Interpretation Comments A1C w/EAG (test code = A1C w/EAG) 6.5 % 1.0-5.7 H average blood glucose (test code = average blood glucose) 139.9 mg/ dL [facility] - Serum or [id number] 07:37:00* Test Item Value Reference Range Interpretation Comments HDL (test code = HDL) 44.0 mg/dL 40.0-60.0 triglyceride (test code = triglyceride) 173.0 mg/dL 0.0-149.0 H VLDL calc. (test code = VLDL calc.) 34.6 mg/dL cholesterol/HDL ratio (test code = cholesterol/HDL ratio) 3.7 mg/dL non-HDL cholesterol calc. (test code = non-HDL cholesterol c alc.) 120.0 mg/dL 0.0-160.0 cholesterol (test code = cholesterol) 164.0 mg/dL 0.0-199.0 LDL calc. (test code = LDL calc.) 85.4 mg/dL 0.0-130.0 [facility] 1999 [facility] - Serum or Plasma 2016-06-02 17:16:00* Test Item Value Reference Range Interpretation Comments ALT (test code = ALT) 28.0 U/L 0.0-55.0 AST (test code = AST) 21.0 U/L 5.0-34.0 BUN (test code = BUN) 11.0 mg/dL 8.0-26.0 alk phos (test code = alk phos) 67.0 unit/L 40.0-150.0 glucose (test code = glucose) 158.0 mg/dL 70.0-99.0 H albumin (test code = albumin) 3.5 g/dL 3.5-5.0 creatinine (test code = creatinine) 1.1 mg/dL 0.7-1.3 eGFR non- (test code = eGFR non-) > 60 >60.0 total bilirubin (test code = total bilirubin) 0.5 mg/dL 0.2-1.2 eGFR - (test code = eGFR - ) >60 >60.0 sodium (test code = sodium) 140.0 mEq/L 137.0-144.0 potassium (test code = potassium) 4.3 mEq/L 3.5-5.0 chloride (test code = chloride) 103.0 mmol/L 101.0-110.0 total protein (test code = total protein) 6.7 g/dL 6.4-8.3 calcium (test code = calcium) 9.1 mg/dL 8.4-10.2 CO2 (test code = CO2) 24 mmol/L 21-29 anion gap (test code = anion gap) 13.0 [facility]
--- OUTSIDE RECORDS SUMMARY | 2020-03-12 12:58 | XMS REPORT | Encounter Summary ---
Author Organization Unknown Address [address] [place] [address] Phone [phone] Care Team Providers Care Barometers Calibrator Name Role Phone Be Padilla MD 3 [phone] Artem Cunha MD 111 [phone] Reason for Visit Hyperlipidemia; Hypertensive disorder; L ow back pain; Chronic obstructive lung disease; Type 2 diabetes mellitus Instructions 1. Body mass index 40+ - severely obese body mass index: care instructions learning about healthy weight 2. Screening for malignant neoplasm of c olon colon cancer screening, stool 3. Influenza vaccination given Fluzone Quad (PF) 60 mcg (15 mcg x 4)/0.5 mL IM syringe 4. Vaccine refused by patient 5. Chronic obstructive lung disease Symbicort 160 mcg-4.5 mcg/actuation HF A aerosol inhaler Ventolin HFA 90 mcg/actuation aerosol inhaler 6. Hypertensive disorder amlodipine 10 mg tablet lisinopril 20 mg-hydrochlorothiazide 1 2.5 mg tablet 7. Type 2 diabetes mellitus glipizide 5 mg tablet metformin 500 mg tablet HbA1c (hemoglobin A1c), blood 8. Hyperlipidemia high cholesterol: care instructions fenofibrate 54 mg tablet simvastatin 40 mg tablet lipid panel, serum CMP, serum or plasma 9. Low back pain cyclobenzaprine 10 mg tablet Discussion Note: None recorded. Plan of Care Patient Instructions continue meds /<wgt/>exercise Reminders Provider Appointments Return to Office on or around 02/14/2020 Dagoberto Morgan MD Lab Colon Cancer Screening, Stool 08/17/2019 [facility] (Cologuard Orders Only) HbA1C (Hemoglobin a1C), Blood 08/17/2019 [facility] Laboratory Lipid Panel, Serum 08/17/2019 [facility] y Practice Laboratory CMP, Serum or Plasma 08/17/2019 [facility] Laboratory Referral None recorded. Procedures None recorded. [...] BMI Blood Pressure 6 ft 4 in 379 lbs 46.1 kg/m2 (1) 150/84 mm[H g] (2) 138/78 mm[Hg] Results Lab Results None recorded. Allergies Code [...] Tobacco Smoking Status Former Smoker Past Encounters 08/17/2019 Body Mass Index 40+ - Severely Obese; Screening for Malignant Neoplasm of Colon; Influenza Vaccination Given; Vaccine Refused by Patient; Chronic Obstructive Lung Disease; Hypertensive Disorder; Type 2 Diabetes Mellitus; Hyperlipidemia; Low Back Pain Dagoberto Morgan MD: [address] [place] [address], Ph. History of Present Illness Note:f/u chronic conditions compliant with meds ,not exercise ,continues cigarette abstinence,d/c 3 .5 yrs Review of Systems:ROS as noted in the HPI Review of Systems None recorded. Physical Exam Cardiology Exam Reported By: Patient Constitutional: General Appearance: well-dev eloped, appears stated age, obese. Level of Distress: comfortable Psychiatric: Mental Status: alert, normal affect. Orientation: oriented to time, place, and person. Insight: good judgment Eyes: Lids and Conjunctivae: non-i njected, anicteric, no discharge, no pallor, no arcus senilis, no xanthelasma. Pupils: PERRLA Neck: Neck: supple, trachea midlin e, no masses, FROM. Carotid Arteries: bilateral normal upstroke, no bruits, no thrills. Cervical Lymph Nodes: non tender, not enlarged. Thyroid: not enlarged, non tender, no nodules Lungs: Respiratory Effort: unlabore d. Chest Exam: normal curvature, no thoracic deformity, no chest wall tenderness. Percussion: resonant. Auscultation: clear, no wheezing, no rales, no rhonchi Cardiovascular: Precordial Exam: non displac ed focal PMI, no heaves, no precordial thrills. Rate And Rhythm: regular. Heart Sounds: normal S1, physiologically split S2, no rub, no gallop, no click. Systolic Murmur: not heard. Diastolic Murmur: not heard. Extremities: no cyanosis, no edema, no peripheral signs of emboli Skin: Inspection and Palpation: wa rm and dry. Nails: no clubbing
--- NOTE | 2020-03-12 13:13 | Emergency Department Note ---
History of Present Illnes History of Present Illness Chief Complaint: Skin Rash or Abscess History of Present Illness This is a 54 year old male Patient in from home with complaints of a diffuse and wide spread red rash to his bilateral arms, hands, and a few on his chest and abdomen, back and legs. Patient states that it itches and then chavez afterwards. Patient states that he "woke up" with the rash on Tuesday but that it has spread and gotten worse since then. Historian: Patient Arrival Mode: Car Onset (how long ago): day(s) (2) Location: arms, legs, trunk Quality: rash Radiation: Reports non-radiation Severity: moderate Onset quality: gradual Timing of current episode: constant Progression: worsening Chronicity: new Context: Denies recent illness Relieving factors: none Exacerbating factors: none Associated symptoms: Reports denies other symptoms Treatments prior to arrival: none Past Medical/Family History Physician Review I have reviewed the patient's past medical and family history. Any updates have been documented here. Past Medical History Recent Fever: No Clinical Suspicion of Infectio: No New/Unexplained Change in Ment: No Past Medical History: Hypertension, Diabetes, COPD Other Surgery: cataract surgery Social History Smoking Cessation: Never Smoker Counseling Performed: No Alcohol Use: None Any Illegal Drug Use: No TB Exposure/Symptoms: No Physically hurt or threatened: No Family History Family history of heart diseas: No Other Any Pre-Existing Lines (PICC,: No Review of Systems Review of Systems Constitutional: Reports no symptoms EENTM: Reports no symptoms Cardiovascular: Reports no symptoms Respiratory: Reports no symptoms Gastrointestinal: Reports no symptoms Genitourinary: Reports no symptoms Musculoskeletal: Reports no symptoms Integumentary: Reports as per HPI, Reports rash Neurological: Reports no symptoms Psychological: Reports no symptoms Endocrine: Reports no symptoms Hematological/Lymphatic: Reports no symptoms Physical Exam Related Data Allergies: Coded Allergies: morphine (Verified Allergy, Unknown, EDEMA, 12/06/17) Triage Vital Signs Vital Signs Date Time Temp Pulse Resp B/P (MAP) Pulse Ox O2 Delivery O2 Flow Rate FiO2 03/12/20 11:56 98.6 118 16 134/96 98 Room Air Vital signs reviewed: Yes Physical Exam CONSTITUTIONAL Constitutional: Present well-developed, Present obese; Absent distressed, Absent ill appearing HENT HENT: Present normocephalic, Present atraumatic, Present oropharynx clear/moist, Present nose normal HENT L/R: Present left ext ear normal, Present right ext ear normal EYES Eyes: Reports PERRL, Reports conjunctivae normal NECK Neck: Present ROM normal PULMONARY Pulmonary: Present effort normal, Present breath sounds normal CARDIOVASCULAR Cardiovascular: Present regular rhythm, Present heart sounds normal, Present capillary refill normal, Present normal rate GASTROINTESTINAL Abdominal: Present soft, Present nontender, Present bowel sounds normal GENITOURINARY Genitourinary: Present exam deferred SKIN Skin: Present rash (erythematous with raised papules at follicles - mainly hands/arms bilat, mild on lower back/abdomen/legs) MUSCULOSKELETAL Musculoskeletal: Present ROM normal NEUROLOGICAL Neurological: Present alert, Present oriented x 3, Present no gross motor or sensory deficits PSYCHOLOGICAL Psychological: Present mood/affect normal, Present judgement normal Assessment & Plan Medical Decision Making MDM rash - ? contact dermatitis but now appears infected/folliculitis Reassessment Reassessment dc with Medrol dose fela, Bactrim DS, OTC Benadryl/Pepcid, F/U PCP tomorrow Assessment & Plan Final Impression: (1) Folliculitis (2) Dermatitis Depart Disposition: HOME, SELF-CARE Last Vital Signs Date Time Temp Pulse Resp B/P (MAP) Pulse Ox O2 Delivery O2 Flow Rate FiO2 03/12/20 11:56 98.6 118 16 134/96 98 Room Air Home Meds Reported Medications Parks-3 Fatty Acids/Fish Oil (FISH OIL 1,200 MG SOFTGEL) 1 Each Capsule, BID 12/16/17 Lisinopril/Hydrochlorothiazide (LISINOPRIL-HCTZ 20-12.5 MG TAB) 1 Each Tablet, DAILY 12/16/17 Budesonide/Formoterol Fumarate (SYMBICORT 160-4.5 MCG INHALER) 10.2 Gm Hfa.aer.ad, INH DAILY 2 PUFFS DAILY 12/02/17 Omeprazole (OMEPRAZOLE) 20 Mg Capsule.dr, 20 MG PEG DAILY 12/02/17 Simvastatin (SIMVASTATIN) 40 Mg Tablet, 40 MG PO 2100, #30 TAB 12/02/17 Amlodipine Besylate (AMLODIPINE BESYLATE) 10 Mg Tablet, 10 MG PO DAILY, #30 TAB 12/02/17 Fenofibrate Nanocrystallized (FENOFIBRATE) 145 Mg Tablet, 1 TAB PO DAILY 12/02/17 Glipizide (GLIPIZIDE ER) 5 Mg Tab.er.24, 5 TAB PO BID 12/02/17 Metformin Hcl (METFORMIN HCL ER) 500 Mg Tab.er.24, 1000 MG PO BID, #60 TAB 12/02/17 Medications in the ED Methylprednisolone Sodium Succinate 125 mg ONCE STAT IV Last administered on 03/12/20at 12:22; Admin Dose 125 MG; Start 03/12/20 at 12:08; Stop 03/12/20 at 12:09; Status DC Sodium Chloride 1,000 ml @ 0 mls/hr Q0M STAT IV Last administered on 03/12/20at 12:22; Admin Dose 999 MLS/HR; Start 03/12/20 at 12:08; Stop 03/12/20 at 12:09; Status DC Diphenhydramine HCl 25 mg NOW ONCE IV Last administered on 03/12/20at 12:22; Admin Dose 25 MG; Start 03/12/20 at 12:15; Stop 03/12/20 at 12:20; Status DC Famotidine 40 mg NOW STAT IV Last administered on 03/12/20at 12:22; Admin Dose 40 MG; Start 03/12/20 at 12:08; Stop 03/12/20 at 12:20; Status DC Diphenhydramine HCl 50 mg STK-MED ONCE .ROUTE ; Start 03/12/20 at 12:27; Stop 03/12/20 at 12:20; Status DC Famotidine 40 mg STK-MED ONCE IV ; Start 03/12/20 at 12:27; Stop 03/12/20 at 12:21; Status DC FABIOLA AVINA MD Mar 12, 2020 13:13
== END 2020-03-12 13:31 | disposition home or self-care (01) ==
LOC: ER 12:55
DX: L30.9 Dermatitis, unspecified (principal); L73.9 Follicular disorder, unspecified; I10 Essential (primary) hypertension; E11.9 Type 2 diabetes mellitus without complications; J44.9 Chronic obstructive pulmonary disease, unspecified
CPT/HCPCS: 99283; J1200; J2930; J7030